=== PATIENT | male | born 1930 | race Caucasian/White ===

== ENCOUNTER 2017-11-24 14:03 | Emergency (ER) | payer MEDICARE, BC ==
[~2017-11-24 14:03] MED LIST: FLUC100T41 PO; KETO2AER3 TOP; NYST100024 TOP
[2017-11-24 14:05] VITALS: BP 181/83; PULSE 50; RESP 20; TEMP 97.5; O2SAT 97
--- NOTE | 2017-11-24 14:46 | RADRPT ---
EXAM DATE/TIME: 11/24/2017 14:24 [facility] COMPARISON: No previous studies available for comparison. INDICATIONS : Left flank pain, fell off of the ladder. MEDICAL HISTORY : prostate cancer SURGICAL HISTORY : treatment for prostate cancer ENCOUNTER: Initial ACUITY: 1 day PAIN SCORE: 5/10 LOCATION: Left flank FINDINGS: PA and lateral views of the chest demonstrate the lungs to be symmetrically aerated without evidence of mass, infiltrate or effusion. Linear scarring is seen within the right lung base. Pleural scarring blunts the left costophrenic angle. 2 calcified granulomas seen involving the right lung. The cardio mediastinal contours are unremarkable. Osseous structures are intact. A degenerative thoracic spine. CONCLUSION: No acute disease. Wesley Hill Jr., MD on November 24, 2017 at 14:42 Board Certified Radiologist. This report was verified electronically.
--- NOTE | 2017-11-24 16:06 | PD ---
HPI . Left chest injury Chief Complaint: Fall Time Seen by Provider: 15:41 Travel History International Travel<30 days: No Contact w/Intl Traveler<30days: No Traveled to known affect area: No History of Present Illness HPI Patient presents for evaluation of an injury to his left lower rib cage status post a fall which occurred 2 days ago. He fell from a 6 foot ladder. He reportedly landed against the wall. Aspirin complaining with left rib pain since that time. He denies any difficulty breathing. He has been taking ibuprofen with good relief of his pain. Pain is rated 5/10 and is exacerbated by palpation and movement. PFSH Past Medical History Hx Anticoagulant Therapy: No Cardiovascular Problems: No Chemotherapy: No Cirrhosis: No Cerebrovascular Accident: No Diabetes: No Diminished Hearing: No Respiratory: No Past Surgical History Other Surgery: Yes (radiation tx for prostate ca) Social History Alcohol Use: No Tobacco Use: No Substance Use: No Allergies-Medications (Allergen,Severity, Reaction): Coded Allergies: No Known Allergies (Verified , 06/23/15) Reported Meds & Prescriptions Reported Meds & Active Scripts Active Diflucan 100 mg (Fluconazole) 100 Mg Tab 100 Mg PO WEEKLY Reported Ketodan (Ketoconazole) 2 % Aer 1 Applic TOP BID APPLY TO AFFECTED AREA Nystatin 100 000 Pow 1 Applic TOP BID Review of Systems Except as stated in HPI: all other systems reviewed are Neg Physical Exam Narrative GENERAL: Awake and alert and in no acute distress. SKIN: Warm and dry. No bruises or abrasions noted. HEAD: Normocephalic/atraumatic. EYES: Pupils are equal. Extraocular movements are intact. The NECK: Normal range of motion. CARDIOVASCULAR: Regular rate and rhythm. RESPIRATORY: Nonlabored respirations. Lungs are clear with good air movement throughout. He has tenderness to palpation of the left lateral lower rib cage and about the axillary line. No crepitus palpated. MUSCULOSKELETAL: Atraumatic. NEUROLOGICAL: Nonfocal. PSYCHIATRIC: Appropriate mood and affect. Data Data Last Documented VS Vital Signs Date Time Temp Pulse Resp B/P (MAP) Pulse Ox O2 Delivery O2 Flow Rate FiO2 11/24/17 14:05 97.5 50 20 181/83 (115) 97 Room Air Orders Orders Chest, Pa & Lat (11/24/17 ) Resp Incentive Spirometry (11/24/17 ) Ed Discharge Order (11/24/17 16:02) MDM Medical Decision Making Medical Screen Exam Complete: Yes Emergency Medical Condition: Yes Differential Diagnosis Differential diagnosis of chest trauma includes but is not limited to superficial abrasions/contusions, rib fracture, pneumothorax, hemothorax, pulmonary contusion, cardiac contusion, ruptured thoracic aorta Narrative Course This patient presents for evaluation of an injury to his left lower rib cage. He injured it in a fall 2 days ago. He is not having any difficulty breathing. His lungs are clear with full air movement throughout. His respiratory rate is 20 and his oxygen saturation on room air is 97%. Last Impressions Chest X-Ray 11/24/17 0000 Signed Impressions: Service Date/Time: Friday, November 24, 2017 14:24 - CONCLUSION: No acute disease. Wesley Hill Jr., MD The x-rays were independently viewed by me. Patient has suffered an injury to his left rib cage is no evidence of pneumothorax on exam or by radiography. He is stable for discharge to home. His pain has been adequately controlled at home with ibuprofen. Diagnosis Primary Impression: Chest wall contusion Qualified Codes: S20.212A - Contusion of left front wall of thorax, initial encounter Patient Instructions: General Instructions, Rib Contusion (ED) Departure Forms: Tests/Procedures Additional Instructions: Continue ibuprofen as needed for pain Disposition: 01 DISCHARGE HOME Condition: Stable Brittanie Dotson MD Nov 24, 2017 16:06
[2017-11-24] MEDS ORDERED: ARIC23TA PO (16:07)
[2017-11-24] MEDS ORDERED: HYDR-3516 PO (16:08)
[2017-11-24] MEDS ORDERED: NAME5TAB2 PO (16:08)
== END 2017-11-24 16:30 | disposition home or self-care (01) ==
LOC: NEPD 14:03
DX: S20.212A Contusion of left front wall of thorax, initial encounter (principal); W11.XXXA Fall on and from ladder, initial encounter
CPT/HCPCS: 71046; 99283

== ENCOUNTER 2017-11-28 12:31 | Emergency (ER) | payer MEDICARE, BC ==
[~2017-11-28] VITALS: Ht 182.9 cm; Wt 68.0 kg
[~2017-11-28 12:31] MED LIST changes: +ARIC23TA PO; -FLUC100T41 PO; +HYDR-3516 PO; -KETO2AER3 TOP; +NAME5TAB2 PO; -NYST100024 TOP
[2017-11-28 12:54] VITALS: BP 132/75; PULSE 59; RESP 18; TEMP 98.3; O2SAT 97
[2017-11-28] MEDS ORDERED: OMEP20TA93 PO (13:26)
[2017-11-28] MEDS ORDERED: LEXA10TA PO (13:27)
[2017-11-28 13:31] LABS: AUTOMATED NEUTROPHIL # 5.1 TH/MM3 (1.8-7.7); BASOPHIL % 0.6 % (0.0-2.0); EOSINOPHIL # 0.1 TH/MM3 (0-0.4); HEMATOCRIT 47.1 % (39.0-51.0); LYMPH % 12.9 % (9.0-44.0); LYMPHOCYTE # 0.8 TH/MM3 (1.0-4.8); MEAN CELL VOLUME 94.4 FL (80.0-100.0); MEAN CORPUSCULAR HGB CONC 31.8 % (32.0-36.0); MEAN PLATELET VOLUME 9.2 FL (7.0-11.0); MONO % 9.1 % (0.0-8.0); MONOCYTE # 0.6 TH/MM3 (0-0.9); NEUT % 75.4 % (16.0-70.0); PLATELET COUNT 195 TH/MM3 (150-450); RED BLOOD COUNT 4.99 MIL/MM3 (4.50-5.90); RED CELL DISTRIBUTION WIDTH 12.5 % (11.6-17.2); WHITE BLOOD COUNT 6.6 TH/MM3 (4.0-11.0)
[2017-11-28 13:53] LABS: BICARBONATE 29.1 MEQ/L (21.0-32.0)
[2017-11-28 13:57] LABS: CREATININE 1.3 MG/DL (0.60-1.30)
[2017-11-28] MEDS ORDERED: IOHEXOL 350 MG/ML 10 ML VIAL (for RAD DIAG) IVCONTRAST ONE (14:17)
--- NOTE | 2017-11-28 14:32 | RADRPT ---
EXAM DATE/TIME: 11/28/2017 14:08 [facility] COMPARISON: No previous studies available for comparison. INDICATIONS : Left lower quadrant pain. Fell off a ladder 1 1/2 weeks ago. Bruising around pelvic region. IV CONTRAST: 85 cc Omnipaque 350 (iohexol) IV ORAL CONTRAST: No oral contrast ingested. RADIATION DOSE: 7.0 CTDIvol (mGy) MEDICAL HISTORY : Dementia. Carcinoma, prostate. SURGICAL HISTORY : None. ENCOUNTER: Initial ACUITY: 1 day PAIN SCALE: 5/10 LOCATION: Bilateral lower quadrant TECHNIQUE: Volumetric scanning of the abdomen and pelvis was performed. Using automated exposure control and ad justment of the mA and/or kV according to patient size, radiation dose was kept as low as reasonably achievable to obtain optimal diagnostic quality images. DICOM format image data is available electro nically for review and comparison. FINDINGS: Low lung base is clear. There is mild compensated cardiomegaly Scattered cyst in liver Multiple large gallstones and benign-appearing gallbladder Spleen pancreas unremarkable Evidence for previous surgery about the left adrenal The right adrenals normal Right and left kidneys are unremarkable The pelvis multiple diverticuli are present sigmoid colon. There is a small hematoma in the left ing uinal region Review of bone windows reveals degenerative changes in lumbar spine. Fracture is not appreciated. CONCLUSION: 4.5 cm hematoma left inguinal region. There is no fracture. Alan Mckeon MD FACR on November 28, 2017 at 14:28 Board Certified Radiologist. This report was verified electronically.
--- NOTE | 2017-11-28 14:35 | PD ---
HPI Chief Complaint: Edema Time Seen by Provider: 13:03 Travel History International Travel<30 days: No Contact w/Intl Traveler<30days: No Traveled to known affect area: No History of Present Illness HPI This is an 87-year-old male brought in by his [id number] who is also with front office agent for evaluation of left lower abdominal pain, bruising, swelling. She reports she noticed the area yesterday while she helped bathe him. He sustained an injury on 11/20 when he slipped off of a ladder falling onto his left side. He was evaluated in the emergency department on 11/24/17 for left rib pain. At that time either negative checks x-ray. According to the note he had no abdominal pain and/or bruising noted. Has been no nausea, vomiting, hematuria. PFSH Past Medical History Hx Anticoagulant Therapy: No Cardiovascular Problems: No Chemotherapy: No Cirrhosis: No Cerebrovascular Accident: No Dementia: Yes Diabetes: No Diminished Hearing: No Genitourinary: Yes (per caregiver: prostate problem they put lead in there") Medical other: Yes (pt poor historian, recalled and info by daughter in law( limited)) Respiratory: No Tetanus Vaccination: > 5 Years Influenza Vaccination: Yes Past Surgical History Other Surgery: Yes (radiation tx for prostate ca) Social History Alcohol Use: No Tobacco Use: No Substance Use: No Allergies-Medications (Allergen,Severity, Reaction): Coded Allergies: No Known Allergies (Verified Adverse Reaction, Unknown, 11/28/17) Reported Meds & Prescriptions Reported Meds & Active Scripts Active Reported Lexapro (Escitalopram Oxalate) 10 Mg Tab 10 Mg PO DAILY Omeprazole 20 Mg Tab 20 Mg PO DAILY Namenda (Memantine) 5 Mg Tab Unknown Dose PO DAILY Hydrocodone-Acetaminophen 5-325 mg Tab 1 Tab PO Q6H PRN Aricept (Donepezil) 23 Mg Tab Unknown Dose PO HS Do not split, crushed or chewed. Review of Systems Except as stated in HPI: all other systems reviewed are Neg General / Constitutional: No: Fever Eyes: No: Visual changes HENT: No: Headaches Cardiovascular: No: Chest Pain or Discomfort Respiratory: No: Shortness of Breath Gastrointestinal: Positive: Abdominal Pain (tenderness to the left lower quadrant notable ecchymosis to the superior aspect of the left groin) Physical Exam Narrative GENERAL: Alert and well-appearing 87-year-old male. SKIN: 3 cm circular abrasion to the left elbow no evidence of infection. HEAD: Normocephalic. atraumatic EYES: pupils equal, round, and reactive. EOMs intact. NECK: Supple, trachea midline. No midline tenderness. CARDIOVASCULAR: Regular rate and rhythm RESPIRATORY: Breath sounds equal bilaterally. No accessory muscle use. GASTROINTESTINAL: Abdomen soft, nondistended. + tenderness LLQ. notable ecchymosis to left supra pubic/groin region with palpable non pulsatile mass. MUSCULOSKELETAL: No cyanosis, or edema. BACK: Nontender without obvious deformity. No CVA tenderness. Data Data Last Documented VS Vital Signs Date Time Temp Pulse Resp B/P (MAP) Pulse Ox O2 Delivery O2 Flow Rate FiO2 11/28/17 12:54 98.3 59 18 132/75 (94) 97 Orders Orders Basic Metabolic Panel (Bmp) (11/28/17 13:12) Complete Blood Count With Diff (11/28/17 13:12) Ct Abd/Pel W Iv Contrast(Rout) (11/28/17 13:12) Iv Access Insert/Monitor (11/28/17 13:12) Iohexol 350 Inj (Omnipaque 350 Inj) (11/28/17 14:17) Ed Discharge Order (11/28/17 14:42) Labs Laboratory Tests Test 11/28/17 13:25 White Blood Count 6.6 TH/MM3 Red Blood Count 4.99 MIL/MM3 Hemoglobin 15.0 GM/DL Hematocrit 47.1 % Mean Corpuscular Volume 94.4 FL Mean Corpuscular Hemoglobin 30.0 PG Mean Corpuscular Hemoglobin Concent 31.8 % Red Cell Distribution Width 12.5 % Platelet Count 195 TH/MM3 Mean Platelet Volume 9.2 FL Neutrophils (%) (Auto) 75.4 % Lymphocytes (%) (Auto) 12.9 % Monocytes (%) (Auto) 9.1 % Eosinophils (%) (Auto) 2.0 % Basophils (%) (Auto) 0.6 % Neutrophils # (Auto) 5.1 TH/MM3 Lymphocytes # (Auto) 0.8 TH/MM3 Monocytes # (Auto) 0.6 TH/MM3 Eosinophils # (Auto) 0.1 TH/MM3 Basophils # (Auto) 0.0 TH/MM3 CBC Comment DIFF FINAL Differential Comment Blood Urea Nitrogen 23 MG/DL Creatinine 1.30 MG/DL Random Glucose 84 MG/DL Calcium Level 9.0 MG/DL Sodium Level 142 MEQ/L Potassium Level 4.7 MEQ/L Chloride Level 107 MEQ/L Carbon Dioxide Level 29.1 MEQ/L Anion Gap 6 MEQ/L Estimat Glomerular Filtration Rate 52 ML/MIN MDM Medical Decision Making Medical Screen Exam Complete: Yes Emergency Medical Condition: Yes Interpretation(s) CBC: Unremarkable BMP: Unremarkable Differential Diagnosis Hematoma, intra-abdominal injury, contusions Narrative Course 87-year-old male here with pain and swelling/bruising to his lower abdomen/ groin region. The area is ecchymotic and consistent with a hematoma. He does have left lower quadrant tenderness. CT scan of the abdomen pelvis reveal a 4.5 cm hematoma. No other intra-abdominal injuries. This was discussed with patient and his caregiver. They were instructed to apply warm compresses. Tylenol seen for pain. Follow up with his primary doctor. Diagnosis Primary Impression: Hematoma Referrals: Primary Care Physician Additional Instructions: Apply warm compresses to the area. Tylenol as needed for pain. Follow-up the primary doctor. Return if he developed new or worsening symptoms. Disposition: 01 DISCHARGE HOME Condition: Stable [place] Nov 28, 2017 14:35
== END 2017-11-28 15:17 | disposition home or self-care (01) ==
LOC: PHEFT 12:31
DX: S30.1XXA Contusion of abdominal wall, initial encounter (principal); F03.90 Unspecified dementia, unspecified severity, without behavioral disturbance, psychotic disturbance, mood disturbance, and anxiety; W11.XXXA Fall on and from ladder, initial encounter; Z85.46 Personal history of malignant neoplasm of prostate; Z79.899 Other long term (current) drug therapy
CPT/HCPCS: 74177; 80048; 85025; 99284; Q9967